=== PATIENT | female | born 1990 | race Caucasian/White ===

== ENCOUNTER → 2016-08-02 | Outpatient (CLI) | payer OTHER ==
[~2016-08-02] MED LIST: MAGNESIUM250 M1 PO; PERCOCET 325 MG1 TA2 PO; PRENATAL
== END ==
LOC: SUN.DIA 10:25
DX: O24.419 Gestational diabetes mellitus in pregnancy, unspecified control (principal); Z3A.31 31 weeks gestation of pregnancy; Z71.3 Dietary counseling and surveillance
CPT/HCPCS: G0108

== ENCOUNTER → 2016-08-15 | Outpatient (CLI) | payer OTHER | LOC: SUN.DIA 11:05 | DX: O24.419 Gestational diabetes mellitus in pregnancy, unspecified control (principal); Z3A.33 33 weeks gestation of pregnancy; Z71.3 Dietary counseling and surveillance | CPT/HCPCS: G0108 ==

== ENCOUNTER 2016-09-13 17:26 | Outpatient (CLI) | payer OTHER ==
[~2016-09-13] VITALS: Ht 165.1 cm; Wt 73.6 kg
[2016-09-13 17:39] VITALS: BP 123/83; PULSE 88; TEMP 97.5
[2016-09-13] MEDS ORDERED: PRENATAL (17:43)
[2016-09-13 18:04] LABS: PH 6 (5-8); SQUAMOUS EPITHELIAL 0-2 /hpf; URINE APPEARANCE Clear; URINE BACTERIA None Seen /hpf; URINE BILIRUBIN Negative (NEGATIVE); URINE BLOOD Negative (NEGATIVE); URINE COLOR Straw; URINE GLUCOSE Negative (NEGATIVE); URINE KETONE Negative (NEGATIVE); URINE RBC 0-2 /hpf; URINE UROBILINOGEN Negative (NEGATIVE); URINE WBC 0-2 /hpf
[2016-09-13 18:30] VITALS: BP 131/85; PULSE 94
[2016-09-13 19:04] VITALS: BP 115/73; PULSE 79; TEMP 98.5
== END 2016-09-13 19:20 | disposition home or self-care (01) ==
LOC: LDRO 17:26 → LDR 17:45 → LDRO 19:20
PROVIDERS: Obstetrics & Gynecology
DX: O47.03 False labor before 37 completed weeks of gestation, third trimester (principal); O24.410 Gestational diabetes mellitus in pregnancy, diet controlled; Z3A.36 36 weeks gestation of pregnancy
CPT/HCPCS: OP

== ENCOUNTER 2016-09-21 11:30 | Inpatient (IN) | payer OTHER ==
[~2016-09-21] VITALS: Ht 165.2 cm; Wt 78.2 kg
[~2016-09-21 11:30] MED LIST changes: -MAGNESIUM250 M1 PO; -PERCOCET 325 MG1 TA2 PO
[2016-10-10] VITALS (38 sets, daily range): BP systolic 108–134; BP diastolic 68–91; PULSE 71–111; TEMP 98.2–98.4
[2016-10-10] MEDS ORDERED: MAGNESIUM250 M1 PO (13:35)
[2016-10-10 13:53] LABS: BASO % 0.4 % (0.0-2.0); EOS # 0.1 (0.0-0.7); EOS % 0.5 % (0-4.0); GRAN # 8.5 (1.4-6.5); HEMOGLOBIN 12.6 g/dl (12.5-16.0); LYMPH # 1.2 (1.2-3.4); LYMPH % 11.2 % (20.0-51.0); MEAN CELL VOLUME 95 fl (80.0-100.0); MEAN CORPUSCULAR HEMOGLOBIN 33 pg (27.0-31.0); MEAN CORPUSCULAR HGB CONC 35 g/dl (33.0-37.0); MONO # 0.6 (0.1-0.6); MONO % 5.5 % (1.7-9.3); PLATELET COUNT 229 K/mm3 (130-400); REDCELL DISTRIBUTION WIDTH-CV 12.9 % (11.5-14.5); WHITE BLOOD COUNT 10.3 K/mm3 (4.8-10.8)
[2016-10-10 14:05] LABS: HEMATOCRIT 36.1 % (37.0-47.0)
[2016-10-11] VITALS (73 sets, daily range): BP systolic 96–226; BP diastolic 56–97; PULSE 77–127; TEMP 97.4–98.5
[2016-10-12 00:30] VITALS: BP 110/75; PULSE 87; TEMP 98.4
[2016-10-12 07:00] VITALS: BP 118/81; PULSE 93; TEMP 98
[2016-10-12 07:50] LABS: BASO # 0.1 (0.0-0.2); BASO % 0.4 % (0.0-2.0); EOS % 0.2 % (0-4.0); GRAN # 10.5 (1.4-6.5); GRAN % 82.2 % (42.2-75.2); LYMPH # 1.3 (1.2-3.4); MEAN CELL VOLUME 98 fl (80.0-100.0); MEAN CORPUSCULAR HGB CONC 34 g/dl (33.0-37.0); MONO # 0.9 (0.1-0.6); MONO % 6.8 % (1.7-9.3); PLATELET COUNT 174 K/mm3 (130-400); RED BLOOD COUNT 2.77 M/mm3 (4.10-5.30); WHITE BLOOD COUNT 12.8 K/mm3 (4.8-10.8)
[2016-10-12 08:06] LABS: HEMATOCRIT 27.2 % (37.0-47.0); HEMOGLOBIN 9.1 g/dl (12.5-16.0); MEAN CORPUSCULAR HEMOGLOBIN 33 pg (27.0-31.0)
[2016-10-12] MEDS ORDERED: PERCOCET 325 MG1 TA2 PO (09:06)
[2016-10-12 21:00] VITALS: BP 117/75; PULSE 98; TEMP 98
[2016-10-13 02:00] VITALS: BP 124/76; PULSE 89; TEMP 98.1
[2016-10-13 07:00] VITALS: BP 114/77; PULSE 87; TEMP 97.6
== END 2016-10-13 14:55 | disposition home or self-care (01) | DRG 765 ==
LOC: EDSTATUS 10-08 07:55 → LDRO 10-08 11:29 → LDR 10-10 07:57 → OB 10-10 12:59 → LDR 10-10 12:59 → OB 10-11 16:30
PROVIDERS: Obstetrics & Gynecology
PROC: 10D00Z1 Extraction of Products of Conception, Low, Open Approach (ICD-10-PCS; principal; 2016-10-11)
PROC: 3E033VJ Introduction of Other Hormone into Peripheral Vein, Percutaneous Approach (ICD-10-PCS; 2016-10-11)
DX: O48.0 Post-term pregnancy (principal); O36.0130 Maternal care for anti-D [Rh] antibodies, third trimester, not applicable or unspecified; O24.410 Gestational diabetes mellitus in pregnancy, diet controlled; O33.1 Maternal care for disproportion due to generally contracted pelvis; O64.0XX0 Obstructed labor due to incomplete rotation of fetal head, not applicable or unspecified; O69.81X0 Labor and delivery complicated by cord around neck, without compression, not applicable or unspecified; O75.89 Other specified complications of labor and delivery; Z3A.40 40 weeks gestation of pregnancy; Z37.0 Single live birth
CPT/HCPCS: J0290; J0595; J0690; J1580; J1885; J2210; J2270; J2370; J2400; J2405; J2590; J2795; J3010; J7120

== ENCOUNTER 2016-10-07 13:24 | Outpatient (CLI) | payer OTHER ==
[~2016-10-07] VITALS: Ht 165.1 cm; Wt 78.6 kg
[2016-10-07 13:37] VITALS: BP 138/87; PULSE 89
[2016-10-07 14:00] VITALS: BP 138/87; PULSE 89
[2016-10-07 15:27] VITALS: BP 118/76; PULSE 86
== END 2016-10-07 17:47 | disposition home or self-care (01) ==
LOC: LDRO 13:24
DX: O47.1 False labor at or after 37 completed weeks of gestation (principal); O24.419 Gestational diabetes mellitus in pregnancy, unspecified control; O26.23 Pregnancy care for patient with recurrent pregnancy loss, third trimester; Z3A.39 39 weeks gestation of pregnancy

== ENCOUNTER → 2016-11-05 | Outpatient (REF) ==
[~2016-11-05] MED LIST changes: +MAGNESIUM250 M1 PO; +PERCOCET 325 MG1 TA2 PO
== END ==
LOC: WSOH 13:35
DX: Z00.00 Encounter for general adult medical examination without abnormal findings (principal)

== ENCOUNTER → 2017-01-15 | Outpatient (REF) | LOC: WSOH 08:32 → WSPT 09:45 | DX: Z02.1 Encounter for pre-employment examination (principal) ==

== ENCOUNTER → 2017-01-17 | Outpatient (REF) | LOC: WSOH 10:15 | DX: Z02.89 Encounter for other administrative examinations (principal) ==

== ENCOUNTER → 2017-01-30 | Outpatient (REF) | LOC: WSOH 11:05 | DX: Z11.1 Encounter for screening for respiratory tuberculosis (principal) ==

== ENCOUNTER → 2017-04-02 | Outpatient (REF) | LOC: WSOH 13:05 | DX: Z02.89 Encounter for other administrative examinations (principal) ==

== ENCOUNTER → 2017-08-01 | Outpatient (CLI) | payer OTHER ==
[2017-08-01 17:32] LABS: BASO # 0.1 (0.0-0.2); BASO % 1.4 % (0.0-2.0); EOS # 0.1 (0.0-0.7); EOS % 1.2 % (0-4.0); GRAN # 2.2 (1.4-6.5); GRAN % 45.1 % (42.2-75.2); LYMPH # 2.1 (1.2-3.4); LYMPH % 43.2 % (20.0-51.0); MEAN CELL VOLUME 78 fl (80.0-100.0); MEAN CORPUSCULAR HGB CONC 30 g/dl (33.0-37.0); MEAN PLATELET VOLUME 10.6 fl (7.4-10.4); MONO # 0.4 (0.1-0.6); MONO % 8.9 % (1.7-9.3); PLATELET COUNT 314 K/mm3 (130-400); RED BLOOD COUNT 4.51 M/mm3 (4.10-5.30); REDCELL DISTRIBUTION WIDTH-CV 17.3 % (11.5-14.5)
[2017-08-01 17:33] LABS: HEMOGLOBIN 10.6 g/dl (12.5-16.0); MEAN CORPUSCULAR HEMOGLOBIN 24 pg (27.0-31.0)
[2017-08-01 17:40] LABS: ALBUMIN 4.2 gm/dL (3.5-5.0); BILIRUBIN,TOTAL 0.9 mg/dL (0.0-1.0); CALCIUM 9.4 mg/dL (8.4-10.2); CHOLESTEROL RISK RATIO 4.2; CREATININE, serum 0.82 mg/dL (0.52-1.25); POTASSIUM 3.9 mmol/L (3.4-5.0); TOTAL PROTEIN 7.5 gm/dL (6.4-8.2)
== END ==
LOC: COL.LAB 10:53
PROVIDERS: Family Medicine
DX: Z13.1 Encounter for screening for diabetes mellitus (principal); Z13.220 Encounter for screening for lipoid disorders; Z00.00 Encounter for general adult medical examination without abnormal findings; K62.5 Hemorrhage of anus and rectum

== ENCOUNTER → 2017-08-02 | Outpatient (CLI) | payer OTHER ==
[2017-08-02 16:36] LABS: MEAN CELL VOLUME 76 fl (80.0-100.0); MEAN CORPUSCULAR HGB CONC 31 g/dl (33.0-37.0); MEAN PLATELET VOLUME 10.2 fl (7.4-10.4); PLATELET COUNT 331 K/mm3 (130-400); RED BLOOD COUNT 4.71 M/mm3 (4.10-5.30); REDCELL DISTRIBUTION WIDTH-CV 17.1 % (11.5-14.5)
[2017-08-02 16:42] LABS: HEMATOCRIT 35.8 % (37.0-47.0); HEMOGLOBIN 11.1 g/dl (12.5-16.0); MEAN CORPUSCULAR HEMOGLOBIN 24 pg (27.0-31.0)
[2017-08-02 16:45] LABS: BAND 4 % (0-10); EOSINOPHIL 1 % (0-4); HYPOCHROMIA 2+; LYMPHOCYTE 52 % (20.0-51.0); NEUTROPHILS 32 % (42.0-75.2); PLATELET ESTIMATE NORMAL (NORMAL)
[2017-08-02 16:46] LABS: MICROCYTOSIS 2+
[2017-08-02 16:49] LABS: ALBUMIN 4.7 gm/dL (3.5-5.0); CALCIUM 9.8 mg/dL (8.4-10.2); CREATININE, serum 0.86 mg/dL (0.52-1.25); POTASSIUM 3.9 mmol/L (3.4-5.0); TOTAL PROTEIN 8.1 gm/dL (6.4-8.2)
[2017-08-03 18:10] LABS: FOLATE (FOLIC ACID) 14.6 ng/mL (7.0-31.4)
== END ==
LOC: COL.LAB 15:50
PROVIDERS: Nurse Practitioner
DX: D64.9 Anemia, unspecified (principal)